=== PATIENT | female | born 1965 | race Caucasian/White ===

== ENCOUNTER 2019-06-17 11:55 | Emergency (ER) | payer BC ==
[~2019-06-17] VITALS: Ht 162.6 cm; Wt 57.8 kg
[2019-06-17 12:02] VITALS: BP 117/87
== END 2019-06-17 13:38 | disposition home or self-care (01) ==
LOC: ED 12:44
DX: N39.0 Urinary tract infection, site not specified (principal)
CPT/HCPCS: 81001; 99283